=== PATIENT | female | born 2000 | race Caucasian/White ===

== ENCOUNTER 2021-05-25 23:00 | Emergency (ER) | payer MEDICAID, SELFPAY ==
[2021-05-25 23:39] VITALS: BP 158/101; PULSE 93; RESP 18; TEMP 36.7; O2SAT 98; BMI 38.0
[2021-05-26 00:16] VITALS: BP 129/89
--- NOTE | 2021-05-26 00:46 | ED.GENADULT ---
HPI - General Adult General Chief complaint: General Medical Stated complaint: HBP Time Seen by Provider: 05/26/21 00:28 Source: patient Mode of arrival: ambulatory Limitations: no limitations History of Present Illness HPI narrative: 20-year-old female who presents emergency department for evaluation of a headache and high blood pressure. The patient states that 2 months prior she had a routine physical examination and she was told by her doctor that she had elevated blood pressures. The patient followed up again yesterday with her PCP and was noted to have an elevated blood pressure. The patient was given option to start medications or to try weight loss, exercise and reducing salt in her diet in order toreduce her blood pressure. Patient chose the non medication option. She states that her doctor is going to get her blood pressure machine and gave her chart to keep track of her blood pressure. She states that yesterday evening, wall she was sitting she had a gradual onset of a headache. She states the headache started on the right side of her head and then gradually spread to the back of her head. She states that the headache was a throbbing like headache which was 9/10 at its worst. She had some blurred vision and dizziness. She took ibuprofen 800 mg orally and this caused the headache to completely resolved. She states that 3 days prior she also had a similar headache which was not a severe. The patient took her blood pressure at home and it was elevated . She was concerned about the high blood pressure headaches she came to the emergency department for evaluation. She denied fever, chills, chest pain, shortness of breath, numbness, weakness, difficulty thinking, difficulty talking. Related Data Allergies Allergy/AdvReac Type Severity Reaction Status Date / Time No Known Allergies Allergy Verified 05/25/21 23:38 [No Known Allergies*] Review of Systems Review of Systems: Yes all other systems are reviewed and are negative [facility] Past Medical History [facility] Narrative: Past medical history: None. Past surgical history: None. Social history: She denies tobacco, alcohol and drug use. Social History Social History Advance Directives: No Advance Directives Information Provided: Yes Patient : No Physical Exam ED Vital Signs: Vital Signs - 24 hr 05/25/21 23:39 05/26/21 00:16 Temperature 98.1 F Pulse Rate 93 Respiratory Rate 18 Blood Pressure 158/101 H 129/89 Pulse Oximetry 98 BMI result Body Mass Index 38.0 Const General: cooperative and no acute distress Orientation/consciousness: oriented to person and oriented to place Limitations: no limitations HENMT Head: Yes normal to inspection, Yes normocephalic and Yes atraumatic Ears: external ears normal General nose exam: Normal external nose present Face and sinus: Yes normal facial exam Mouth: Normal oral and palatal mucosa present Throat: Yes posterior oropharynx normal Eyes General: appearance normal, both eyes and all related structures Pupils: Equal, round and reactive pupils present Neck Neck: Yes normal visual inspection, Yes no lymphadenopathy, Yes trachea midline and Yes supple Chest Chest palpation & inspection: normal inspection of the chest and normal palpation of entire chest wall Resp Effort & Inspection: normal respiratory effort and able to speak in complete sentences Auscultation: clear to auscultation bilaterally Cardio Rate: regular rate Rhythm: regular rhythm Heart sounds: S1 normal heart sound present, S2 normal heart sound present and no murmurs GI Inspection: Yes normal to inspection Palpation (GI): Soft to palpation, nontender and no guarding Auscultation: normal bowel sounds General: Yes no CVA tenderness Back/Spine/Pelvis Back: no CVA tenderness Skin General skin exam: no rashes or lesions noted Neuro General: oriented to person and oriented to place Cranial nerves: Yes CN's II-XII intact bilaterally and Yes Equal, round and reactive pupils present Cognition (Neuro): normal cognition Motor exam (neuro): 5/5 motor strength present throughout Extrem General: Yes normal to inspection Psych Appearance: grossly normal Speech and movement: Normal speech and movement present Affect: normal affect Attitude: cooperative Thought process: Normal thought process present Thought content: Normal thought content present Course Course Course Narrative: 20-year-old female who presents emergency department for evaluation of a headache and elevated blood pressure. The patient's headache did resolve after the patient took ibuprofen 800 mg orally. The patient did have an elevated blood pressure here in the emergency department of 158/101. Her exam was otherwise unremarkable. At this time, I do not think that the patient's headache was related to her blood pressure or caused by subarachnoid hemorrhage, temporal arteritis or meningitis. The patient still wants to try a non medication option for her elevated blood pressures and I did discuss this with her. The patient was given printed and verbal instructions and discharged home. Discharge Plan Discharge Clinical Impression: Hypertension Headache Qualifiers: Headache type: unspecified Headache chronicity pattern: acute headache Intractability: not intractable Qualified Code(s): R51.9 - Headache, unspecified Patient Disposition: Home, Self-Care Instructions: Acute Headache (DC) Additional Instructions: Your blood pressure was high in the emergency department 158/101. Normal blood pressure is usually 120/80. The reason to check your blood pressure at home is to give your doctor an idea of what your blood pressure does when you are not in the doctor's office. Take your blood pressure as directed by your doctor and fill on the chart that your doctor gave you. Do not worry about the blood pressure readings, chest write them down and discuss them with your doctor at your next visit. There are 2 ways to lower your blood pressure: One way is to exercise, lose weight, and cut salt out of your diet. The other is to start you on a blood pressure medication. You decided with your doctor, to try to exercise, lose weight cut salt however diet, this can sometimes take 2-6 months before you see results. I do not think that your headache today was related to your high blood pressure. Take ibuprofen 200 mg pills, 3 pills every 6 hours as needed for pain. Take Tylenol (acetaminophen) 500 mg pills, 2 pills every 4 to 6 hours as needed for pain. Please return to the emergency department if your symptoms get worse or if you develop any new symptoms that are concerning to you. Interventions: ED Discharge Assessment Last Done: 05/26/21 01:15 Discharge Date/Time: 05/26/21 01:16
== END 2021-05-26 01:16 | disposition home or self-care (01) ==
LOC: HO.ED 05-26 00:58
PROVIDERS: Emergency Provider Emergency Medicine Emergency Medical Services
DX: R51.9 Headache, unspecified (principal); I10 Essential (primary) hypertension; Z79.899 Other long term (current) drug therapy
CPT/HCPCS: 99282; 99283